=== PATIENT | female | born 1935 | race Caucasian/White ===

== ENCOUNTER 2018-01-26 13:29 | Emergency (ER) | payer MEDICARE, MEDICAID ==
[~2018-01-26] VITALS: Ht 162.6 cm; Wt 65.3 kg
[~2018-01-26 13:29] MED LIST: ALBU18HF2 INH; CELE-85 PO; DIGO125T PO; ENAL10TA PO; ESZO3TAB27 PO; FENO145T37 PO; FLUT1DIS28 INH; FURO20TA4 PO; HYDR10TA PO; LEVO750T46 PO; LUBI24CA5 PO; MONT10TA22 PO; OMEG1CAP40 PO; SOLI5TAB2 PO; TIOT18CA4 IH
[2018-01-26] MEDS ORDERED: IV NORMAL SALINE 500 ML BAG IV ONE (13:45)
--- NOTE | 2018-01-26 13:47 | NUR ---
Pt to CT, NAD noted.
--- NOTE | 2018-01-26 14:03 | NUR ---
Pt back from CT.
[2018-01-26 14:25] LABS: BASOPHILS # (AUTO) 0.1 K/uL (0.0-8.0); BASOPHILS % (AUTO) 0.6 % (0.0-2.0); EOSINOPHILS # (AUTO) 0.2 K/uL (0.0-0.7); EOSINOPHILS % (AUTO) 1.6 % (0.0-7.0); HEMATOCRIT 32.6 % (31.2-41.9); HEMOGLOBIN 11.4 g/dL (10.9-14.3); LYMPHOCYTES # (AUTO) 2.3 K/uL (20.0-40.0); LYMPHOCYTES % (AUTO) 24.3 % (20.5-51.5); MEAN CORPUSCULAR HEMOGLOBIN 30.7 uug (24.7-32.8); MEAN CORPUSCULAR HGB CONC 35 g/dL (32.3-35.6); MEAN CORPUSCULAR VOLUME 87.8 fL (75.5-95.3); MONOCYTES # (AUTO) 0.7 K/uL (2.0-10.0); MONOCYTES % (AUTO) 7.1 % (0.0-11.0); NEUTROPHILS # (AUTO) 6.2 K/uL (1.8-8.9); NEUTROPHILS % (AUTO) 66.4 % (38.5-71.5); PLATELET COUNT (AUTO) 204 K/uL (179-408); RED BLOOD CELL COUNT(AUTO) 3.72 MIL/uL (3.63-4.92); WHITE BLOOD COUNT (AUTO) 9.4 K/uL (3.8-11.8)
[2018-01-26] MEDS ORDERED: ALBU18HF2 IH (14:31)
[2018-01-26] MEDS ORDERED: POTA8TAB8 PO (14:31)
[2018-01-26] MEDS ORDERED: SPIR25TA4 PO (14:31)
[2018-01-26] MEDS ORDERED: LOSA100T15 PO (14:31)
[2018-01-26] MEDS ORDERED: HYDR-3974 PO (14:31)
[2018-01-26] MEDS ORDERED: OLME1TAB19 PO (14:31)
[2018-01-26] MEDS ORDERED: LUBI24CA5 PO (14:32)
[2018-01-26 14:34] LABS: ALANINE AMINOTRANSFERASE 27 U/L (14-59); ALKALINE PHOSPHATASE 35 U/L (50-136); ASPARTATE AMINOTRANSFERASE 11 U/L (15-37); BILIRUBIN,DIRECT 0.1 mg/dL (0.0-0.2); BILIRUBIN,TOTAL 0.3 mg/dL (0.2-1.0); CARBON DIOXIDE 23 mmol/L (21-32); CHLORIDE 107 mmol/L (98-107); GLUCOSE 157 mg/dL (74-106); LIPASE 168 U/L (73-393); POTASSIUM 4.2 mmol/L (3.5-5.1); TOTAL PROTEIN, SERUM 6.8 g/dL (6.4-8.2); UREA NITROGEN, BLOOD 23 mg/dL (7-18)
[2018-01-26 15:10] LABS: *BILIRUBIN,URIN NEGATIVE (NEGATIVE); *BLOOD, URINE NEGATIVE (NEGATIVE); *CLARITY,URINE CLEAR (CLEAR); *COLOR,URINE YELLOW (YELLOW); *KETONES,URINE NEGATIVE (NEGATIVE); *PROTEIN,URINE NEGATIVE (NEGATIVE); *UROBILINOGEN,URINE 0.2 E.U./dl (NORMAL); LEUKOCYTE ESTERASE ,URINE NEGATIVE (NEGATIVE); NITRITE, URINE NEGATIVE (NEGATIVE); PH,URINE 5.5 (5.0-8.0); UGLUCOSE NEGATIVE (NEGATIVE)
[2018-01-26 15:19] LABS: BACTERIA,URINE NONE SEEN /HPF (NONE SEEN); RBC,URINE 0-3 /HPF (0-3); SQUAMOUS EPITHELIAL CELL,UR FEW /HPF (NONE SEEN); WBC,URINE 0-3 /HPF (0-3)
--- NOTE | 2018-01-26 15:20 | NUR ---
IV removed. Catheter intact and site benign. Pressure and 4x4 gauze applied to site. No bleeding noted.
--- NOTE | 2018-01-26 15:23 | NUR ---
Patient discharged to home in stable conditon with family. Written and verbal after care instructions given. Patient and family verbalized understanding of instructions. Stressed follow up with pmd or return to ER for worsening s/s.
[2018-01-26 15:25] VITALS: BP 143/79
== END 2018-01-26 15:25 | disposition home or self-care (01) ==
LOC: ER 13:29
DX: R10.31 Right lower quadrant pain (principal); I10 Essential (primary) hypertension; J45.909 Unspecified asthma, uncomplicated; F17.210 Nicotine dependence, cigarettes, uncomplicated; Z88.0 Allergy status to penicillin; Z88.2 Allergy status to sulfonamides; Z88.8 Allergy status to other drugs, medicaments and biological substances; Z79.2 Long term (current) use of antibiotics; Z79.51 Long term (current) use of inhaled steroids; Z79.899 Other long term (current) drug therapy
CPT/HCPCS: 36415; 70030-TC; 83690; 85025; 93005; A4663; J7030

== ENCOUNTER 2018-02-26 11:51 | Emergency (ER) | payer MEDICARE, MEDICAID ==
[~2018-02-26] VITALS: Ht 152.4 cm; Wt 65.8 kg
[~2018-02-26 11:51] MED LIST changes: +ALBU18HF2 IH; +HYDR-3974 PO; +LOSA100T15 PO; +OLME1TAB19 PO; +POTA8TAB8 PO; +SPIR25TA4 PO
[2018-02-26] MEDS ORDERED: ALBUTEROL SULFATE 2.5 MG/3 ML NEBU NEB ONE (12:30)
[2018-02-26] MEDS ORDERED: IPRATROPIUM BROMIDE 0.5 MG/2.5 ML NEBU NEB ONE (12:30)
[2018-02-26] MEDS ORDERED: methylPREDNISolone SOD SUCC 125 MG/2 ML VIAL IV ONE (12:30)
[2018-02-26] MEDS ORDERED: methylPREDNISolone SOD SUCC 125 MG/2 ML VIAL ONE (12:38)
[2018-02-26] MEDS ORDERED: ALBUTEROL SULFATE 2.5 MG/3 ML NEBU ONE (12:43)
[2018-02-26] MEDS ORDERED: ALBUTEROL SULFATE 2.5 MG/ 0.5 ML NEBU ONE (12:44)
[2018-02-26] MEDS ORDERED: IPRATROPIUM BROMIDE 0.5 MG/2.5 ML NEBU ONE (12:44)
[2018-02-26 12:45] LABS: BASOPHILS # (AUTO) 0.1 K/uL (0.0-8.0); BASOPHILS % (AUTO) 0.7 % (0.0-2.0); EOSINOPHILS # (AUTO) 0.3 K/uL (0.0-0.7); EOSINOPHILS % (AUTO) 3.4 % (0.0-7.0); HEMATOCRIT 34.5 % (31.2-41.9); HEMOGLOBIN 11.6 g/dL (10.9-14.3); LYMPHOCYTES # (AUTO) 1.8 K/uL (20.0-40.0); LYMPHOCYTES % (AUTO) 23.1 % (20.5-51.5); MEAN CORPUSCULAR HGB CONC 34 g/dL (32.3-35.6); MEAN CORPUSCULAR VOLUME 86.5 fL (75.5-95.3); MONOCYTES # (AUTO) 0.8 K/uL (2.0-10.0); MONOCYTES % (AUTO) 9.8 % (0.0-11.0); PLATELET COUNT (AUTO) 182 K/uL (179-408); RED BLOOD CELL COUNT(AUTO) 3.99 MIL/uL (3.63-4.92)
--- NOTE | 2018-02-26 12:47 | NUR ---
RT AT BEDSIDE NEBULIZATION TX ADMINISTERED .
[2018-02-26 12:53] LABS: CARBON DIOXIDE 31 mmol/L (21-32); CHLORIDE 100 mmol/L (98-107); GLUCOSE 143 mg/dL (74-106); POTASSIUM 3.5 mmol/L (3.5-5.1); UREA NITROGEN, BLOOD 16 mg/dL (7-18)
[2018-02-26 13:06] LABS: ALANINE AMINOTRANSFERASE 29 U/L (14-59); ALKALINE PHOSPHATASE 39 U/L (50-136); ASPARTATE AMINOTRANSFERASE 18 U/L (15-37); BILIRUBIN,DIRECT 0.1 mg/dL (0.0-0.2); BILIRUBIN,TOTAL 0.4 mg/dL (0.2-1.0)
[2018-02-26] MEDS ORDERED: methylPREDNISolone ACETATE 40 MG VIAL IM ONE (13:30)
[2018-02-26] MEDS ORDERED: methylPREDNISolone ACETATE 40 MG VIAL ONE (13:50)
--- NOTE | 2018-02-26 14:06 | NUR ---
Patient discharged to home in stable conditon. Written and verbal after care instructions given. Patient verbalizes understanding of instructions.
[2018-02-26] MEDS ORDERED: ONDANSETRON ODT 4 MG TAB.RAPDIS ONE (14:11)
--- NOTE | 2018-02-26 14:12 | NUR ---
After patient received ACI, patient had a period of N/V. ERMD notified, orders received.
[2018-02-26] MEDS ORDERED: ONDANSETRON ODT 4 MG TAB.RAPDIS SL ONE (14:15)
== END 2018-02-26 14:14 | disposition home or self-care (01) ==
LOC: ER 11:51
DX: I11.0 Hypertensive heart disease with heart failure (principal); I50.32 Chronic diastolic (congestive) heart failure; F17.200 Nicotine dependence, unspecified, uncomplicated; I70.0 Atherosclerosis of aorta; D64.9 Anemia, unspecified; E78.5 Hyperlipidemia, unspecified; J44.1 Chronic obstructive pulmonary disease with (acute) exacerbation; J45.901 Unspecified asthma with (acute) exacerbation; Z88.0 Allergy status to penicillin; Z88.2 Allergy status to sulfonamides
CPT/HCPCS: 36415; 70030-TC; 71045; 83605; 85025; 87040; 93005; A4663; J1030; J2930; J3590; Q0162

== ENCOUNTER 2018-11-19 12:55 | Emergency (ER) | payer MEDICARE, MEDICAID ==
[~2018-11-19] VITALS: Ht 162.6 cm; Wt 63.5 kg
[~2018-11-19 12:55] MED LIST changes: -LEVO750T46 PO; -LOSA100T15 PO; +LOSA100T31 PO; -SPIR25TA4 PO; +SPIR25TA6 PO
--- NOTE | 2018-11-19 13:06 | NUR ---
PT A/OX4, PRESENTS TO THE ER W/ MULTIPLE COMPLAINTS. C/C FEVER - PT REPORTS FEVER THE LAST COUPLE OF DAYS BUT UNABLE TO REMEMBER WHAT THE TEMPERATURE WAS. SHE IS AFEBRILE AT THIS TIME. SECONDARY COMPLAINT: CHRONIC BACK PAIN. TERTIARY COMPLAINT: WEAKNESS. PT DENIES C/P, SOB, N/V/D, DIZZINESS, HEADACHE.
--- NOTE | 2018-11-19 13:10 | NUR ---
SHABBIR KNIGHT AT BEDSIDE FOR MSE.
[2018-11-19] MEDS ORDERED: METF-440 PO (13:17)
[2018-11-19] MEDS: IV NORMAL SALINE 500 ML BAG IV ONE (13:29)
[2018-11-19 13:34] LABS: BASOPHILS % (AUTO) 0.6 % (0.0-2.0); EOSINOPHILS # (AUTO) 0.4 K/uL (0.0-0.7); EOSINOPHILS % (AUTO) 4.5 % (0.0-7.0); HEMATOCRIT 32.3 % (31.2-41.9); HEMOGLOBIN 10.7 g/dL (10.9-14.3); LYMPHOCYTES # (AUTO) 1.9 K/uL (20.0-40.0); LYMPHOCYTES % (AUTO) 22.5 % (20.5-51.5); MEAN CORPUSCULAR HEMOGLOBIN 27.5 uug (24.7-32.8); MEAN CORPUSCULAR HGB CONC 33 g/dL (32.3-35.6); MEAN CORPUSCULAR VOLUME 83.4 fL (75.5-95.3); MONOCYTES # (AUTO) 0.8 K/uL (2.0-10.0); MONOCYTES % (AUTO) 9.1 % (0.0-11.0); NEUTROPHILS # (AUTO) 5.3 K/uL (1.8-8.9); NEUTROPHILS % (AUTO) 63.3 % (38.5-71.5); PLATELET COUNT (AUTO) 222 K/uL (179-408); RED BLOOD CELL COUNT(AUTO) 3.88 MIL/uL (3.63-4.92); WHITE BLOOD COUNT (AUTO) 8.3 K/uL (3.8-11.8)
[2018-11-19 13:41] LABS: CARBON DIOXIDE 28 mmol/L (21-32); CHLORIDE 102 mmol/L (98-107); CREATININE 1.1 mg/dL (0.6-1.3); GLUCOSE 134 mg/dL (74-106); UREA NITROGEN, BLOOD 22 mg/dL (7-18)
[2018-11-19 13:53] LABS: ALANINE AMINOTRANSFERASE 21 U/L (14-59); ALKALINE PHOSPHATASE 45 U/L (50-136); ASPARTATE AMINOTRANSFERASE 14 U/L (15-37); BILIRUBIN,DIRECT 0.1 mg/dL (0.0-0.2); BILIRUBIN,TOTAL 0.4 mg/dL (0.2-1.0); TOTAL PROTEIN, SERUM 7.3 g/dL (6.4-8.2)
--- NOTE | 2018-11-19 14:27 | NUR ---
Patient discharged to home in stable conditon. Written and verbal after care instructions given. Patient verbalizes understanding of instructions.
[2018-11-19 14:28] VITALS: BP 130/71
== END 2018-11-19 14:32 | disposition home or self-care (01) ==
LOC: ER 12:55
DX: R05 Cough (principal); R06.02 Shortness of breath; R07.9 Chest pain, unspecified; I11.0 Hypertensive heart disease with heart failure; J44.9 Chronic obstructive pulmonary disease, unspecified; F17.200 Nicotine dependence, unspecified, uncomplicated; Z88.0 Allergy status to penicillin; Z88.2 Allergy status to sulfonamides; Z88.8 Allergy status to other drugs, medicaments and biological substances; Z79.51 Long term (current) use of inhaled steroids; Z79.899 Other long term (current) drug therapy
CPT/HCPCS: 36415; 70030-TC; 71045; 83605; 85025; 87040; 93005; A4663; J7040

== ENCOUNTER 2019-02-14 20:18 | Inpatient (IN) | payer MEDICARE, MEDICAID ==
[~2019-02-14] VITALS: Ht 165.1 cm; Wt 59.0 kg
[~2019-02-14 20:18] MED LIST changes: -ALBU18HF2 IH; +METF-440 PO
--- NOTE | 2019-02-14 20:35 | NUR ---
Dr. Galeas at bedside for MSE.
--- NOTE | 2019-02-14 20:36 | NUR ---
Code Stroke Activated.
--- NOTE | 2019-02-14 20:36 | NUR ---
Dr. Galeas at bedside for MSE.
[2019-02-14] MEDS ORDERED: METOCLOPRAMIDE HCL 10 MG/2 ML VIAL ONE (20:42)
[2019-02-14] MEDS ORDERED: diphenhydrAMINE 50 MG/1 ML VIAL ONE (20:42)
--- NOTE | 2019-02-14 20:44 | NUR ---
Pt out of ER for CT.
[2019-02-14] MEDS ORDERED: diphenhydrAMINE 50 MG/1 ML VIAL IV ONE (20:45)
[2019-02-14] MEDS ORDERED: METOCLOPRAMIDE HCL 10 MG/2 ML VIAL IV ONE (20:45)
[2019-02-14 20:49] LABS: BASOPHILS % (AUTO) 0.4 % (0.0-2.0); EOSINOPHILS # (AUTO) 0.4 K/uL (0.0-0.7); HEMATOCRIT 34.7 % (31.2-41.9); HEMOGLOBIN 11.5 g/dL (10.9-14.3); LYMPHOCYTES # (AUTO) 2.6 K/uL (20.0-40.0); LYMPHOCYTES % (AUTO) 25.5 % (20.5-51.5); MEAN CORPUSCULAR HGB CONC 33 g/dL (32.3-35.6); MEAN CORPUSCULAR VOLUME 81.7 fL (75.5-95.3); MONOCYTES # (AUTO) 0.6 K/uL (2.0-10.0); MONOCYTES % (AUTO) 5.3 % (0.0-11.0); NEUTROPHILS # (AUTO) 6.7 K/uL (1.8-8.9); NEUTROPHILS % (AUTO) 64.8 % (38.5-71.5); PLATELET COUNT (AUTO) 275 K/uL (179-408); RED BLOOD CELL COUNT(AUTO) 4.25 MIL/uL (3.63-4.92); WHITE BLOOD COUNT (AUTO) 10.4 K/uL (3.8-11.8)
--- NOTE | 2019-02-14 20:55 | NUR ---
Pt back to ER from CT.
[2019-02-14 20:57] LABS: CARBON DIOXIDE 26 mmol/L (21-32); CHLORIDE 97 mmol/L (98-107); GLUCOSE 106 mg/dL (74-106); UREA NITROGEN, BLOOD 17 mg/dL (7-18)
[2019-02-14 21:03] LABS: ALANINE AMINOTRANSFERASE 19 U/L (14-59); ALKALINE PHOSPHATASE 53 U/L (50-136); ASPARTATE AMINOTRANSFERASE 12 U/L (15-37); BILIRUBIN,DIRECT 0.1 mg/dL (0.0-0.2); BILIRUBIN,TOTAL 0.3 mg/dL (0.2-1.0); CHOLESTEROL 199 mg/dL (<200); HDL CHOLESTEROL 40 mg/dL (40-60); TOTAL PROTEIN, SERUM 7.7 g/dL (6.4-8.2); TRIGLYCERIDES 336 MG/DL (30-150)
[2019-02-14] MEDS ORDERED: LABETALOL HCL 100 MG/20 ML VIAL ONE (21:15)
[2019-02-14] MEDS ORDERED: LABETALOL HCL 100 MG/20 ML VIAL IV ONE (21:30)
--- NOTE | 2019-02-14 21:30 | NUR ---
Code stroke cleared.
--- NOTE | 2019-02-14 22:01 | NUR ---
JIMI PAGED, AWAITING CALL BACK FROM DR. CASTANEDA
--- NOTE | 2019-02-14 22:08 | NUR ---
Dr. Galeas on panel call with Dr. Luis E Mendoza. Patient accepted for admission to [facility], diagnosis: accelerated hypertension.
--- NOTE | 2019-02-14 22:21 | NUR ---
Report given to Will leadership development instructor.
--- NOTE | 2019-02-14 22:40 | NUR ---
PATIENT AND FAMILY UNABLE TO RECALL MEDICATION AT HOME AT THIS TIME. ADMITTING NURSE NEEDS TO FOLLOW UP WITH MEDICATION
[2019-02-14] MEDS ORDERED: FENO145T37 PO (22:48)
[2019-02-14] MEDS ORDERED: ISOS30TA6 PO (22:48)
[2019-02-14] MEDS ORDERED: ALBU18HF2 IH (22:48)
[2019-02-14] MEDS ORDERED: LOTE5DRO4 OP (22:48)
[2019-02-14] MEDS ORDERED: EFIN4SOL TP (22:48)
[2019-02-14] MEDS ORDERED: FEBU40TA PO (22:48)
[2019-02-14] MEDS ORDERED: ESOM40CA PO (22:48)
--- NOTE | 2019-02-14 23:00 | NUR ---
ADMITTED PATIENT IN TELE UNIT UNDER THE CARE OF DR. CASTANEDA. PATIENT ALERT, ORIENTED, NO COMPLAIN OF PAIN AT THIS TIME. BP STABLE, BODY CHECK DONE, BELONGING LIST WAS DONE. CONT TO MONITOR.
[2019-02-14 23:08] VITALS: BP 133/64
[2019-02-14] MEDS ORDERED: MAGNESIUM HYDROXIDE 30 ML LIQUID UDC PO PRN (23:45)
[2019-02-14] MEDS ORDERED: HYDROCODONE/APAP 5-325MG TABLET PO PRN (23:45)
[2019-02-14] MEDS ORDERED: hydrALAZINE HCL 25 MG TABLET PO PRN (23:45)
[2019-02-14] MEDS ORDERED: TEMAZEPAM 15 MG CAPSULE PO PRN (23:45)
[2019-02-14] MEDS ORDERED: ONDANSETRON 4 MG/2 ML VIAL IV PRN (23:45)
[2019-02-14] MEDS ORDERED: ACETAMINOPHEN 325 MG TABLET PO PRN (23:45)
[2019-02-14] MEDS: BENAZEPRIL HCL 10 MG TABLET PO SCH (23:59)
[2019-02-15 04:00] VITALS: BP 123/67
--- NOTE | 2019-02-15 05:18 | NUR ---
PATIENT AWAKE, SLEPT MOST OF THE NIGHT, NO SOB NO CHEST PAIN, TELE MONITOR SINUS RHYTHM WITH OCCASIONAL PVC, NO COMPLAIN OF DIZZINESS, NOR HEADACHES. NOTED. CALL LIGHT WITHIN REACH.
[2019-02-15] MEDS: PANTOPRAZOLE SODIUM 40 MG TABLET.DR PO SCH (06:16)
[2019-02-15 06:49] LABS: BASOPHILS % (AUTO) 0.3 % (0.0-2.0); EOSINOPHILS # (AUTO) 0.4 K/uL (0.0-0.7); EOSINOPHILS % (AUTO) 5.1 % (0.0-7.0); HEMATOCRIT 29.8 % (31.2-41.9); LYMPHOCYTES # (AUTO) 2.8 K/uL (20.0-40.0); LYMPHOCYTES % (AUTO) 37.1 % (20.5-51.5); MEAN CORPUSCULAR HEMOGLOBIN 27.1 uug (24.7-32.8); MEAN CORPUSCULAR HGB CONC 34 g/dL (32.3-35.6); MONOCYTES # (AUTO) 0.6 K/uL (2.0-10.0); MONOCYTES % (AUTO) 7.5 % (0.0-11.0); NEUTROPHILS # (AUTO) 3.7 K/uL (1.8-8.9); PLATELET COUNT (AUTO) 232 K/uL (179-408); RED BLOOD CELL COUNT(AUTO) 3.68 MIL/uL (3.63-4.92); WHITE BLOOD COUNT (AUTO) 7.5 K/uL (3.8-11.8)
[2019-02-15 07:07] LABS: THYROID STIMULATING HORMONE 3.452 mIU/mL (0.358-3.740)
[2019-02-15 07:12] LABS: ALANINE AMINOTRANSFERASE 16 U/L (14-59); ALKALINE PHOSPHATASE 43 U/L (50-136); ASPARTATE AMINOTRANSFERASE 13 U/L (15-37); BILIRUBIN,TOTAL 0.5 mg/dL (0.2-1.0); CARBON DIOXIDE 25 mmol/L (21-32); CHLORIDE 99 mmol/L (98-107); GLUCOSE 86 mg/dL (74-106); MAGNESIUM 1.7 mg/dL (1.8-2.4); POTASSIUM 3.5 mmol/L (3.5-5.1); TOTAL PROTEIN, SERUM 6.5 g/dL (6.4-8.2); UREA NITROGEN, BLOOD 18 mg/dL (7-18)
[2019-02-15 07:15] LABS: IRON, SERUM 66 ug/dL (50-175)
--- NOTE | 2019-02-15 07:25 | NUR ---
RECEIVED REPORT FROM PAPER ROLL MACHINE OPERATOR NURSE.SIDE RAILS UP X2, BED ALARM ON. CALL LIGHT AT REACH.
[2019-02-15 08:58] VITALS: BP 111/37
[2019-02-15] MEDS: BENAZEPRIL HCL 10 MG TABLET PO SCH (09:01)
[2019-02-15] MEDS ORDERED: MAGNESIUM OXIDE 400 MG TABLET PO ONE (10:00)
[2019-02-15] MEDS ORDERED: DEXL60CA3 PO (11:42)
[2019-02-15] MEDS ORDERED: FLUT1DIS28 INH (11:44)
[2019-02-15] MEDS ORDERED: CALC-555 PO (11:46)
[2019-02-15 11:47] VITALS: BP 97/35
[2019-02-15] MEDS ORDERED: HYDR10TA PO (11:47)
[2019-02-15] MEDS ORDERED: TIOT18CA3 INH (11:48)
[2019-02-15] MEDS ORDERED: ESZO3TAB27 PO (11:48)
[2019-02-15] MEDS ORDERED: CHOL10002 PO (11:49)
[2019-02-15] MEDS ORDERED: MIRA25TA PO (11:51)
[2019-02-15] MEDS ORDERED: DIGO125T PO (11:51)
[2019-02-15] MEDS ORDERED: POTA8CAP10 PO (11:52)
[2019-02-15] MEDS ORDERED: MONT10TA22 PO (11:53)
[2019-02-15] MEDS ORDERED: LOSA100T31 PO (11:53)
[2019-02-15] MEDS ORDERED: METF-494 PO (11:54)
[2019-02-15] MEDS ORDERED: SPIR25TA6 PO (12:05)
[2019-02-15] MEDS ORDERED: FERR325T6 PO (13:11)
[2019-02-15] MEDS ORDERED: ALBUTEROL SULFATE 8 GM HFA.AER.AD IH PRN (13:30)
[2019-02-15] MEDS ORDERED: ALBUTEROL SULFATE 2.5 MG/3 ML NEBU NEB PRN (13:45)
[2019-02-15 16:03] VITALS: BP 112/58
[2019-02-15] MEDS ORDERED: FLUTICASONE/SALMETEROL 250/50 INHALER INH SCH (17:00)
[2019-02-15] MEDS ORDERED: Medication Not On Formulary EA (Ferrous Sulfate 325 MG) PO SCH (17:00)
[2019-02-15] MEDS: FERROUS SULFATE 325 MG TABEC PO SCH (17:35)
[2019-02-15] MEDS: METFORMIN XR 500 MG TAB.SR.24H PO SCH (17:36)
[2019-02-15] MEDS: HYDROCORTISONE 10 MG TABLET PO SCH (17:37)
[2019-02-15] MEDS ORDERED: Medication Not On Formulary EA (Metformin Hcl (Metformin Hcl Er) 1 TAB) PO SCH (18:00)
--- NOTE | 2019-02-15 18:41 | NUR ---
Patient slept throughout the morning. Patient took all medications as prescribed. Patient had echo done and results came back normal.
--- NOTE | 2019-02-15 19:40 | NUR ---
Received patient awake in bed with daughter at bedside. She is complaining of headache at the moment, will check her vital signs and check for prn pain medications. She is on room air, tolerated. She has an iv access on her right antecubital vein,20g to saline lock. Will monitor blood pressure changes. Bed in low position, locked, side rails up x 2, call light within reach. Noise and lights subdued.
[2019-02-15 19:58] VITALS: BP 100/36
--- NOTE | 2019-02-15 20:10 | NUR ---
Patient refused pain medication, since she states the pain went away. No other complaints at the moment. Will continue to monitor.
[2019-02-15] MEDS: DOCUSATE SODIUM 100 MG CAPSULE PO SCH ×2 (20:16→20:22)
[2019-02-15] MEDS ORDERED: CALCIUM CARB/VITAMIN D 500MG-200UNITS TABLET PO SCH (21:00)
[2019-02-15] MEDS ORDERED: FENOFIBRATE NANOCRYSTALLIZED 145 MG TABLET PO SCH (21:00)
[2019-02-15] MEDS ORDERED: ESZOPICLONE PO SCH (21:00)
[2019-02-15] MEDS ORDERED: DOCUSATE SODIUM 250 MG CAPSULE PO SCH (21:00)
[2019-02-16 00:05] VITALS: BP 110/38
[2019-02-16 04:00] VITALS: BP 113/39
--- NOTE | 2019-02-16 06:13 | NUR ---
Patient refused to take protonix at this time, insisting to take medication exactly 30 minutes before breakfast, will endorse to morning shift nurse.
--- NOTE | 2019-02-16 06:13 | NUR ---
Patient slept intermittently throughout the night. No recurrence of any pain. Still on room air, tolerated. Still with iv access on her right antecubital vein,20g to saline lock. Attended all needs. Ensured safety and comfort.
[2019-02-16 06:18] LABS: CARBON DIOXIDE 27 mmol/L (21-32); CHLORIDE 99 mmol/L (98-107); CREATININE 1.3 mg/dL (0.6-1.3); GLUCOSE 92 mg/dL (74-106); MAGNESIUM 1.8 mg/dL (1.8-2.4); POTASSIUM 3.9 mmol/L (3.5-5.1); UREA NITROGEN, BLOOD 27 mg/dL (7-18)
[2019-02-16 06:20] LABS: BASOPHILS % (AUTO) 0.5 % (0.0-2.0); EOSINOPHILS # (AUTO) 0.4 K/uL (0.0-0.7); EOSINOPHILS % (AUTO) 5.8 % (0.0-7.0); HEMATOCRIT 29.9 % (31.2-41.9); LYMPHOCYTES # (AUTO) 2.3 K/uL (20.0-40.0); LYMPHOCYTES % (AUTO) 35.4 % (20.5-51.5); MEAN CORPUSCULAR HEMOGLOBIN 27.3 uug (24.7-32.8); MEAN CORPUSCULAR HGB CONC 34 g/dL (32.3-35.6); MEAN CORPUSCULAR VOLUME 81.2 fL (75.5-95.3); MONOCYTES # (AUTO) 0.5 K/uL (2.0-10.0); NEUTROPHILS # (AUTO) 3.2 K/uL (1.8-8.9); NEUTROPHILS % (AUTO) 50.3 % (38.5-71.5); PLATELET COUNT (AUTO) 214 K/uL (179-408); RED BLOOD CELL COUNT(AUTO) 3.68 MIL/uL (3.63-4.92); WHITE BLOOD COUNT (AUTO) 6.5 K/uL (3.8-11.8)
[2019-02-16] MEDS ORDERED: PANTOPRAZOLE SODIUM 40 MG TABLET.DR PO SCH (07:00)
--- NOTE | 2019-02-16 07:25 | NUR ---
Received report from hourly shift manager nurse. Patient sleeping,bed at lowest position, side rail up x2, call light within reach and bed alarm on.
[2019-02-16] MEDS: PANTOPRAZOLE SODIUM 40 MG TABLET.DR PO SCH (08:01)
[2019-02-16] MEDS: METFORMIN XR 500 MG TAB.SR.24H PO SCH (08:02)
[2019-02-16] MEDS ORDERED: Medication Not On Formulary EA (Losartan Potassium 1 TAB) PO SCH (09:00)
[2019-02-16] MEDS ORDERED: MONTELUKAST SODIUM 10 MG TABLET PO SCH (09:00)
[2019-02-16] MEDS ORDERED: POTASSIUM CHLORIDE 8 MEQ TAB.PRT.SR PO SCH (09:00)
[2019-02-16] MEDS ORDERED: LOSARTAN POTASSIUM 50 MG TABLET PO SCH (09:00)
[2019-02-16] MEDS ORDERED: ISOSORBIDE MONONITRATE 30 MG TAB.SR.24H PO SCH (09:00)
[2019-02-16] MEDS ORDERED: FLUTICASONE/VILANTEROL 1 EACH BLST.W.DEV INH SCH (09:00)
[2019-02-16] MEDS ORDERED: CHOLECALCIFEROL 1,000 UNIT TABLET PO SCH (09:00)
[2019-02-16] MEDS ORDERED: DIGOXIN 125 MCG TABLET PO SCH (09:00)
[2019-02-16] MEDS: FERROUS SULFATE 325 MG TABEC PO SCH (09:04)
[2019-02-16] MEDS: HYDROCORTISONE 10 MG TABLET PO SCH (09:57)
[2019-02-16 11:00] VITALS: BP 108/42
--- NOTE | 2019-02-16 12:57 | NUR ---
PATIENT WAS GIVEN DISCHARGE INSTRUCTIONS, IV REMOVED, AND CHILDREN'S PROGRAM COORDINATOR COLLECTED. PATIENT BELONGINGS ACCOUNTED FOR, AND PATIENT IS AWAITING MANAGER FLIGHT OPERATIONS BY DAUGHTER.
[2019-02-17] MEDS ORDERED: SPIRONOLACTONE 25 MG TABLET PO SCH (09:00)
== END 2019-02-16 13:00 | disposition home or self-care (01) | DRG 103 ==
LOC: ER 20:20 → TELE3 22:25
PROVIDERS: ADMIT Internal Medicine; ATTEND Family Medicine
DX: G43.909 Migraine, unspecified, not intractable, without status migrainosus (principal); E83.42 Hypomagnesemia; J45.909 Unspecified asthma, uncomplicated; I11.9 Hypertensive heart disease without heart failure; R79.89 Other specified abnormal findings of blood chemistry; G93.89 Other specified disorders of brain; Z79.51 Long term (current) use of inhaled steroids; Z79.899 Other long term (current) drug therapy; Z88.2 Allergy status to sulfonamides; Z87.11 Personal history of peptic ulcer disease; Z87.891 Personal history of nicotine dependence; Z83.3 Family history of diabetes mellitus; Z82.49 Family history of ischemic heart disease and other diseases of the circulatory system; Z88.0 Allergy status to penicillin; Z79.84 Long term (current) use of oral hypoglycemic drugs
CPT/HCPCS: 36415; 70030-TC; 70450; 71045; 83550; 83735; 84100; 84443; 85025; 85730; 93005; 93307; 97116; 97530; A4663; G0378; J1200; J2765; J3490

== ENCOUNTER 2019-05-12 12:28 | Emergency (ER) | payer MEDICARE, MEDICAID ==
[~2019-05-12] VITALS: Ht 157.5 cm; Wt 61.2 kg
[~2019-05-12 12:28] MED LIST changes: +ALBU18HF2 IH; -ALBU18HF2 INH; +CALC-555 PO; -CELE-85 PO; +CHOL10002 PO; +DEXL60CA3 PO; +EFIN4SOL TP; -ENAL10TA PO; +FEBU40TA PO; +FERR325T6 PO; -FURO20TA4 PO; -HYDR-3974 PO; +ISOS30TA6 PO; -LUBI24CA5 PO; -METF-440 PO; +METF-494 PO; +MIRA25TA PO; -OLME1TAB19 PO; -OMEG1CAP40 PO; +POTA8CAP20 PO; -POTA8TAB8 PO; -SOLI5TAB2 PO; +TIOT18CA3 INH; -TIOT18CA4 IH
[2019-05-12] MEDS ORDERED: MORPHINE SULFATE 4 MG/1 ML DISP.SYRIN SQ ONE (13:30)
[2019-05-12] MEDS ORDERED: MORPHINE SULFATE 2 MG/1 ML DISP.SYRIN ONE (13:31)
--- NOTE | 2019-05-12 13:48 | NUR ---
"'I want to go home. " per patient's verbalization, MD notified. Patient says that she feels much better.
--- NOTE | 2019-05-12 14:03 | NUR ---
Patient discharged to home in stable conditon & slow steady gait. Written and verbal after care instructions given to patient. Patient verbalizes understanding & compliance of instructions.
== END 2019-05-12 14:06 | disposition home or self-care (01) ==
LOC: ER 12:28
DX: M79.632 Pain in left forearm (principal); I10 Essential (primary) hypertension; J45.909 Unspecified asthma, uncomplicated; F17.200 Nicotine dependence, unspecified, uncomplicated; Z88.0 Allergy status to penicillin; Z88.2 Allergy status to sulfonamides; Z88.8 Allergy status to other drugs, medicaments and biological substances; Z79.899 Other long term (current) drug therapy; Z79.51 Long term (current) use of inhaled steroids; W18.39XA Other fall on same level, initial encounter; Y93.89 Activity, other specified; Y92.89 Other specified places as the place of occurrence of the external cause; Y99.8 Other external cause status
CPT/HCPCS: 73090; 96372; 99283; J2270; A4663

== ENCOUNTER 2019-05-22 19:06 | Inpatient (IN) | payer MEDICARE, MEDICAID ==
[~2019-05-22] VITALS: Ht 162.6 cm; Wt 61.7 kg
[2019-05-22] MEDS ORDERED: IV NORMAL SALINE 1000 ML BAG IV ONE (20:15)
[2019-05-22 20:37] LABS: BASOPHILS % (AUTO) 0.2 % (0.0-2.0); EOSINOPHILS # (AUTO) 0.1 K/uL (0.0-0.7); EOSINOPHILS % (AUTO) 1.8 % (0.0-7.0); HEMATOCRIT 32.8 % (31.2-41.9); HEMOGLOBIN 11.2 g/dL (10.9-14.3); LYMPHOCYTES # (AUTO) 1.4 K/uL (20.0-40.0); LYMPHOCYTES % (AUTO) 20.5 % (20.5-51.5); MEAN CORPUSCULAR HGB CONC 34 g/dL (32.3-35.6); MEAN CORPUSCULAR VOLUME 85.4 fL (75.5-95.3); MONOCYTES # (AUTO) 0.8 K/uL (2.0-10.0); MONOCYTES % (AUTO) 11.7 % (0.0-11.0); NEUTROPHILS # (AUTO) 4.5 K/uL (1.8-8.9); NEUTROPHILS % (AUTO) 65.8 % (38.5-71.5); PLATELET COUNT (AUTO) 255 K/uL (179-408); RED BLOOD CELL COUNT(AUTO) 3.85 MIL/uL (3.63-4.92); WHITE BLOOD COUNT (AUTO) 6.8 K/uL (3.8-11.8)
[2019-05-22 20:50] LABS: ALANINE AMINOTRANSFERASE 22 U/L (14-59); ALKALINE PHOSPHATASE 50 U/L (50-136); ASPARTATE AMINOTRANSFERASE 14 U/L (15-37); BILIRUBIN,DIRECT < 0.1 mg/dL (0.0-0.2); BILIRUBIN,TOTAL 0.4 mg/dL (0.2-1.0); CARBON DIOXIDE 19 mmol/L (21-32); CHLORIDE 99 mmol/L (98-107); CREATININE 2.2 mg/dL (0.6-1.3); GLUCOSE 106 mg/dL (74-106); LIPASE 187 U/L (73-393); TOTAL PROTEIN, SERUM 7.6 g/dL (6.4-8.2); UREA NITROGEN, BLOOD 41 mg/dL (7-18)
[2019-05-22 20:52] LABS: POTASSIUM 6.2 mmol/L (3.5-5.1)
[2019-05-22] MEDS ORDERED: OLME40TA12 PO (20:56)
[2019-05-22] MEDS ORDERED: OLME1TAB22 PO (20:56)
[2019-05-22] MEDS ORDERED: SODIUM POLYSTYRENE SULFONATE 15 G/60 ML LIQUID UDC PO ONE (21:00)
[2019-05-22] MEDS ORDERED: SODIUM POLYSTYRENE SULF POWDER 15 GM UDC ONE (21:40)
[2019-05-22] MEDS ORDERED: TEMAZEPAM 15 MG CAPSULE PO PRN (21:45)
[2019-05-22] MEDS ORDERED: Z GUARD REMEDY PASTE 57 GM TUBE TOP PRN (21:45)
[2019-05-22] MEDS ORDERED: ONDANSETRON 4 MG/2 ML VIAL IV PRN (21:45)
[2019-05-22] MEDS ORDERED: ALBUTEROL SULFATE 2.5 MG/3 ML NEBU NEB PRN (21:45)
[2019-05-22] MEDS ORDERED: MORPHINE SULFATE 2 MG/1 ML DISP.SYRIN IV PRN (21:45)
[2019-05-22] MEDS ORDERED: ACETAMINOPHEN 325 MG TABLET PO PRN (21:45)
[2019-05-22 23:39] VITALS: BP 110/52
[2019-05-23 04:00] VITALS: BP 114/51
[2019-05-23 06:42] LABS: BASOPHILS % (AUTO) 0.1 % (0.0-2.0); EOSINOPHILS # (AUTO) 0.1 K/uL (0.0-0.7); EOSINOPHILS % (AUTO) 2.1 % (0.0-7.0); HEMATOCRIT 29.9 % (31.2-41.9); HEMOGLOBIN 10.2 g/dL (10.9-14.3); LYMPHOCYTES # (AUTO) 1.3 K/uL (20.0-40.0); LYMPHOCYTES % (AUTO) 25.2 % (20.5-51.5); MEAN CORPUSCULAR HEMOGLOBIN 29.3 uug (24.7-32.8); MEAN CORPUSCULAR HGB CONC 34 g/dL (32.3-35.6); MEAN CORPUSCULAR VOLUME 85.7 fL (75.5-95.3); MONOCYTES # (AUTO) 0.7 K/uL (2.0-10.0); MONOCYTES % (AUTO) 12.8 % (0.0-11.0); NEUTROPHILS # (AUTO) 3.2 K/uL (1.8-8.9); NEUTROPHILS % (AUTO) 59.8 % (38.5-71.5); PLATELET COUNT (AUTO) 197 K/uL (179-408); RED BLOOD CELL COUNT(AUTO) 3.49 MIL/uL (3.63-4.92); WHITE BLOOD COUNT (AUTO) 5.3 K/uL (3.8-11.8)
[2019-05-23 06:49] LABS: ALANINE AMINOTRANSFERASE 12 U/L (14-59); ALKALINE PHOSPHATASE 41 U/L (50-136); ASPARTATE AMINOTRANSFERASE 13 U/L (15-37); BILIRUBIN,TOTAL 0.5 mg/dL (0.2-1.0); CARBON DIOXIDE 20 mmol/L (21-32); CHLORIDE 100 mmol/L (98-107); CHOLESTEROL 160 mg/dL (<200); CREATININE 1.8 mg/dL (0.6-1.3); GLUCOSE 90 mg/dL (74-106); HDL CHOLESTEROL 25 mg/dL (40-60); MAGNESIUM 1.5 mg/dL (1.8-2.4); POTASSIUM 4.5 mmol/L (3.5-5.1); TOTAL PROTEIN, SERUM 6.3 g/dL (6.4-8.2); TRIGLYCERIDES 196 MG/DL (30-150); UREA NITROGEN, BLOOD 41 mg/dL (7-18)
[2019-05-23] MEDS: PANTOPRAZOLE SODIUM 40 MG TABLET.DR PO SCH ×2 (07:46→08:02)
[2019-05-23] MEDS: MAGNESIUM SULFATE/D5W 100 ML IV SCH ×2 (08:02→09:09)
[2019-05-23] MEDS: CHOLECALCIFEROL 1,000 UNIT TABLET PO SCH ×2 (08:03→09:00)
[2019-05-23] MEDS: MONTELUKAST SODIUM 10 MG TABLET PO SCH ×2 (08:04→09:00)
[2019-05-23] MEDS: HYDROCORTISONE 10 MG TABLET PO SCH ×3 (08:05→17:00)
[2019-05-23] MEDS: FLUTICASONE/VILANTEROL 1 EACH BLST.W.DEV INH SCH ×2 (08:07→09:00)
[2019-05-23] MEDS: LOSARTAN POTASSIUM 50 MG TABLET PO SCH (08:07)
[2019-05-23] MEDS: DIGOXIN 125 MCG TABLET PO SCH (08:11)
[2019-05-23] MEDS: IV NS 1000 ML 1,000 ML IV PRN ×2 (08:38→20:21)
[2019-05-23] MEDS ORDERED: Medication Not On Formulary EA (Olmesartan Medoxomil (Benicar) 40 MG) PO SCH (09:00)
[2019-05-23] MEDS: OXYBUTYNIN XL 5 MG TABSR PO SCH (09:00)
[2019-05-23] MEDS ORDERED: FLUTICASONE/SALMETEROL 250/50 INHALER INH SCH (09:00)
[2019-05-23] MEDS: HYDROCODONE/APAP 5-325MG TABLET PO PRN ×2 (09:41→21:12)
[2019-05-23] MEDS: LOPERAMIDE HCL 2 MG CAPSULE PO PRN (09:48)
[2019-05-23 11:31] VITALS: BP 107/46
[2019-05-23 15:56] VITALS: BP 98/36
[2019-05-23 20:44] VITALS: BP 122/90
[2019-05-23] MEDS: FENOFIBRATE NANOCRYSTALLIZED 145 MG TABLET PO SCH (21:00)
[2019-05-23] MEDS: CALCIUM CARB/VITAMIN D 500MG-200UNITS TABLET PO SCH (21:13)
[2019-05-23 22:02] LABS: *BILIRUBIN,URIN NEGATIVE (NEGATIVE); *BLOOD, URINE NEGATIVE (NEGATIVE); *CLARITY,URINE CLEAR (CLEAR); *COLOR,URINE YELLOW (YELLOW); *KETONES,URINE NEGATIVE (NEGATIVE); *UROBILINOGEN,URINE 0.2 E.U./dl (NORMAL); LEUKOCYTE ESTERASE ,URINE NEGATIVE (NEGATIVE); NITRITE, URINE NEGATIVE (NEGATIVE); UGLUCOSE NEGATIVE (NEGATIVE)
[2019-05-23] MEDS ORDERED: ICOS1CAP PO (22:04)
[2019-05-23] MEDS ORDERED: k-dur PO (22:06)
[2019-05-23] MEDS ORDERED: ISOS30TA6 PO (22:07)
[2019-05-23] MEDS ORDERED: TRAM50TA2 PO (22:08)
[2019-05-23] MEDS ORDERED: ALBU18HF2 IH (22:09)
[2019-05-23] MEDS ORDERED: LUBI24CA5 PO (22:10)
[2019-05-23] MEDS ORDERED: GABA-534 PO (22:11)
[2019-05-23] MEDS ORDERED: FERR325T23 PO (22:12)
[2019-05-24] VITALS: BP 122/87
[2019-05-24 04:00] VITALS: BP 130/60
[2019-05-24 05:50] LABS: BASOPHILS % (AUTO) 0.2 % (0.0-2.0); EOSINOPHILS # (AUTO) 0.1 K/uL (0.0-0.7); HEMATOCRIT 28.7 % (31.2-41.9); HEMOGLOBIN 10.1 g/dL (10.9-14.3); LYMPHOCYTES # (AUTO) 1.1 K/uL (20.0-40.0); LYMPHOCYTES % (AUTO) 28.3 % (20.5-51.5); MEAN CORPUSCULAR HEMOGLOBIN 29.7 uug (24.7-32.8); MEAN CORPUSCULAR HGB CONC 35 g/dL (32.3-35.6); MEAN CORPUSCULAR VOLUME 84.3 fL (75.5-95.3); MONOCYTES # (AUTO) 0.6 K/uL (2.0-10.0); MONOCYTES % (AUTO) 14.7 % (0.0-11.0); NEUTROPHILS # (AUTO) 2.2 K/uL (1.8-8.9); NEUTROPHILS % (AUTO) 54.8 % (38.5-71.5); PLATELET COUNT (AUTO) 187 K/uL (179-408); RED BLOOD CELL COUNT(AUTO) 3.41 MIL/uL (3.63-4.92); WHITE BLOOD COUNT (AUTO) 3.9 K/uL (3.8-11.8)
[2019-05-24 05:56] LABS: CARBON DIOXIDE 19 mmol/L (21-32); CHLORIDE 106 mmol/L (98-107); CREATININE 1.1 mg/dL (0.6-1.3); GLUCOSE 83 mg/dL (74-106); MAGNESIUM 1.7 mg/dL (1.8-2.4); POTASSIUM 4.7 mmol/L (3.5-5.1); UREA NITROGEN, BLOOD 25 mg/dL (7-18)
[2019-05-24] MEDS: IV NS 1000 ML 1,000 ML IV PRN ×2 (06:17→16:42)
[2019-05-24] MEDS: PANTOPRAZOLE SODIUM 40 MG TABLET.DR PO SCH (06:17)
[2019-05-24] MEDS ORDERED: MONTELUKAST SODIUM 10 MG TABLET PO SCH ×2 (07:15→18:00)
[2019-05-24] MEDS: DIGOXIN 125 MCG TABLET PO SCH (08:47)
[2019-05-24] MEDS: CHOLECALCIFEROL 1,000 UNIT TABLET PO SCH (08:48)
[2019-05-24] MEDS: HYDROCODONE/APAP 5-325MG TABLET PO PRN ×2 (08:48→18:17)
[2019-05-24] MEDS: LOPERAMIDE HCL 2 MG CAPSULE PO PRN (08:48)
[2019-05-24] MEDS: LOSARTAN POTASSIUM 50 MG TABLET PO SCH (08:49)
[2019-05-24] MEDS: OXYBUTYNIN XL 5 MG TABSR PO SCH (08:49)
[2019-05-24] MEDS: HYDROCORTISONE 10 MG TABLET PO SCH ×2 (08:50→17:32)
[2019-05-24] MEDS: FLUTICASONE/VILANTEROL 1 EACH BLST.W.DEV INH SCH (08:54)
[2019-05-24 09:00] VITALS: BP 144/55
[2019-05-24] MEDS ORDERED: MAGNESIUM OXIDE 400 MG TABLET PO ONE (09:45)
[2019-05-24 15:59] LABS: IRON, SERUM 39 ug/dL (50-175)
[2019-05-24 16:12] LABS: FERRITIN 59 ng/mL (8-252)
[2019-05-24 18:08] VITALS: BP 116/51
[2019-05-24 19:46] VITALS: BP 129/60
[2019-05-24] MEDS: CALCIUM CARB/VITAMIN D 500MG-200UNITS TABLET PO SCH (20:14)
[2019-05-24] MEDS: FENOFIBRATE NANOCRYSTALLIZED 145 MG TABLET PO SCH (20:14)
[2019-05-25] MEDS: IV NS 1000 ML 1,000 ML IV PRN (02:28)
[2019-05-25] MEDS: HYDROCODONE/APAP 5-325MG TABLET PO PRN ×2 (03:17→09:23)
[2019-05-25 05:54] VITALS: BP 122/64
[2019-05-25] MEDS: PANTOPRAZOLE SODIUM 40 MG TABLET.DR PO SCH (06:25)
[2019-05-25 06:39] LABS: BASOPHILS % (AUTO) 0.2 % (0.0-2.0); EOSINOPHILS # (AUTO) 0.1 K/uL (0.0-0.7); EOSINOPHILS % (AUTO) 2.3 % (0.0-7.0); HEMATOCRIT 27.8 % (31.2-41.9); HEMOGLOBIN 9.6 g/dL (10.9-14.3); LYMPHOCYTES # (AUTO) 1.3 K/uL (20.0-40.0); MEAN CORPUSCULAR HEMOGLOBIN 29.5 uug (24.7-32.8); MEAN CORPUSCULAR HGB CONC 34 g/dL (32.3-35.6); MEAN CORPUSCULAR VOLUME 85.6 fL (75.5-95.3); MONOCYTES # (AUTO) 0.5 K/uL (2.0-10.0); MONOCYTES % (AUTO) 15.3 % (0.0-11.0); NEUTROPHILS # (AUTO) 1.5 K/uL (1.8-8.9); NEUTROPHILS % (AUTO) 44.2 % (38.5-71.5); PLATELET COUNT (AUTO) 191 K/uL (179-408); RED BLOOD CELL COUNT(AUTO) 3.24 MIL/uL (3.63-4.92); WHITE BLOOD COUNT (AUTO) 3.5 K/uL (3.8-11.8)
[2019-05-25 06:46] LABS: CARBON DIOXIDE 20 mmol/L (21-32); CHLORIDE 110 mmol/L (98-107); CREATININE 0.9 mg/dL (0.6-1.3); GLUCOSE 87 mg/dL (74-106); MAGNESIUM 1.6 mg/dL (1.8-2.4); PHOSPHOROUS 3.9 mg/dL (2.5-4.9); POTASSIUM 4.3 mmol/L (3.5-5.1); UREA NITROGEN, BLOOD 15 mg/dL (7-18)
[2019-05-25 07:36] LABS: EOSINOPHILS % (MANUAL) 2 % (0-8); LYMPHOCYTES % (MANUAL) 38 % (20-40); MONOCYTES % (MANUAL) 12 % (2-10); NEUTROPHILS % (MANUAL) 48 % (42-75)
[2019-05-25] MEDS: FLUTICASONE/VILANTEROL 1 EACH BLST.W.DEV INH SCH (09:06)
[2019-05-25] MEDS: HYDROCORTISONE 10 MG TABLET PO SCH (09:06)
[2019-05-25] MEDS: DIGOXIN 125 MCG TABLET PO SCH (09:09)
[2019-05-25] MEDS: CHOLECALCIFEROL 1,000 UNIT TABLET PO SCH (09:10)
[2019-05-25] MEDS: LOSARTAN POTASSIUM 50 MG TABLET PO SCH (09:13)
[2019-05-25] MEDS: OXYBUTYNIN XL 5 MG TABSR PO SCH (09:13)
[2019-05-25] MEDS ORDERED: MAGNESIUM OXIDE 400 MG TABLET PO ONE (10:15)
[2019-05-25 10:53] LABS: *OCCULT BLOOD STOOL NEGATIVE (NEGATIVE)
[2019-05-25 11:32] VITALS: BP 146/65
[2019-05-25] MEDS ORDERED: LOPE2CAP40 PO (12:20)
[2019-05-25] MEDS ORDERED: LOSA50TA3 PO (12:20)
== END 2019-05-25 15:15 | disposition home or self-care (01) | DRG 640 ==
LOC: ER 19:11 → TELE3 23:14 → MEDSURG3 05-24 11:30
PROVIDERS: ADMIT Nurse Practitioner Acute Care; ATTEND Nurse Practitioner Acute Care
PROC: 05HB33Z Insertion of Infusion Device into Right Basilic Vein, Percutaneous Approach (ICD-10-PCS; principal; 2019-05-24)
DX: E87.5 Hyperkalemia (principal); N17.0 Acute kidney failure with tubular necrosis; E44.1 Mild protein-calorie malnutrition; E87.1 Hypo-osmolality and hyponatremia; E86.0 Dehydration; E83.42 Hypomagnesemia; R19.7 Diarrhea, unspecified; G43.909 Migraine, unspecified, not intractable, without status migrainosus; Z90.49 Acquired absence of other specified parts of digestive tract; Z83.3 Family history of diabetes mellitus; Z82.49 Family history of ischemic heart disease and other diseases of the circulatory system; Z79.51 Long term (current) use of inhaled steroids; J45.909 Unspecified asthma, uncomplicated; K44.9 Diaphragmatic hernia without obstruction or gangrene; I11.9 Hypertensive heart disease without heart failure; D64.9 Anemia, unspecified; I95.9 Hypotension, unspecified
CPT/HCPCS: 36415; 71045; 83550; 83690; 83735; 84100; 84443; 85025; 86625; 87046; 87086; 87177; 93005; A4663; G0378; J3475; J7030

== ENCOUNTER 2019-11-23 12:02 | Emergency (ER) | payer MEDICARE, OTHER ==
[~2019-11-23] VITALS: Ht 162.6 cm; Wt 59.0 kg
--- NOTE | 2019-11-23 12:28 | NUR ---
Pt walked in w/ steady gate w/ friend c/o LLQ pain past month but has gotten worse and more severe past 3 days. Pt A/O x4 , no neuro symptoms noted. Lungs are clear bilaterally, noSOB. No chest pain, all pulses palpable, cap refil <3 seconds. Abdominal pain x3 days, no N/V. Bed at lowest level, side rails upx2, call light within reach of pt.Fall precautions implemented.
[2019-11-23] MEDS ORDERED: SWABABLE VALVE TRANSFER SET EA MC ONE (12:41)
[2019-11-23] MEDS ORDERED: IV NORMAL SALINE 250 ML IV ONE (12:41)
[2019-11-23] MEDS ORDERED: IOHEXOL 300MG/ML 100 ML INFUS..BTL ONE (12:41)
[2019-11-23 13:06] LABS: BASOPHILS % (AUTO) 0.4 % (0.0-2.0); EOSINOPHILS # (AUTO) 0.4 K/uL (0.0-0.7); EOSINOPHILS % (AUTO) 4.2 % (0.0-7.0); HEMATOCRIT 40.7 % (31.2-41.9); HEMOGLOBIN 13.8 g/dL (10.9-14.3); LYMPHOCYTES # (AUTO) 2.4 K/uL (20.0-40.0); LYMPHOCYTES % (AUTO) 25.6 % (20.5-51.5); MEAN CORPUSCULAR HEMOGLOBIN 31.2 uug (24.7-32.8); MEAN CORPUSCULAR HGB CONC 34 g/dL (32.3-35.6); MONOCYTES # (AUTO) 0.6 K/uL (2.0-10.0); MONOCYTES % (AUTO) 6.4 % (0.0-11.0); NEUTROPHILS # (AUTO) 5.9 K/uL (1.8-8.9); NEUTROPHILS % (AUTO) 63.4 % (38.5-71.5); PLATELET COUNT (AUTO) 199 K/uL (179-408); RED BLOOD CELL COUNT(AUTO) 4.42 MIL/uL (3.63-4.92); WHITE BLOOD COUNT (AUTO) 9.3 K/uL (3.8-11.8)
--- NOTE | 2019-11-23 13:13 | NUR ---
Pt signed consent for CT scan of abdomen.
[2019-11-23 13:20] LABS: BILIRUBIN,DIRECT 0.1 mg/dL (0.0-0.2); BILIRUBIN,TOTAL 0.3 mg/dL (0.2-1.0); CREATININE 1.1 mg/dL (0.6-1.3); POTASSIUM 3.8 mmol/L (3.5-5.1); TOTAL PROTEIN, SERUM 7.5 g/dL (6.4-8.2)
[2019-11-23 13:21] LABS: *BILIRUBIN,URIN NEGATIVE (NEGATIVE); *BLOOD, URINE NEGATIVE (NEGATIVE); *CLARITY,URINE CLEAR (CLEAR); *COLOR,URINE YELLOW (YELLOW); *KETONES,URINE NEGATIVE (NEGATIVE); *UROBILINOGEN,URINE 0.2 E.U./dl (NORMAL); LEUKOCYTE ESTERASE ,URINE NEGATIVE (NEGATIVE); NITRITE, URINE NEGATIVE (NEGATIVE); PH,URINE 5.5 (5.0-8.0); UGLUCOSE NEGATIVE (NEGATIVE)
[2019-11-23] MEDS ORDERED: MORPHINE SULFATE 2 MG/1 ML DISP.SYRIN ONE (14:36)
[2019-11-23] MEDS ORDERED: MORPHINE SULFATE 2 MG/1 ML DISP.SYRIN IV ONE (14:45)
--- NOTE | 2019-11-23 14:48 | NUR ---
pt given pain med iv , tolerated well. Resting in bed comfortably. friend at bedside
--- NOTE | 2019-11-23 15:00 | NUR ---
Patient discharged to home in stable conditon walking w steady gair .Iv removed on R AC. Written and verbal after care instructions given. Patient verbalizes understanding of instructions.Patients friend will drive her home.
[2019-11-23 15:19] VITALS: BP 122/80
== END 2019-11-23 15:00 | disposition home or self-care (01) ==
LOC: ER 12:02
DX: K44.9 Diaphragmatic hernia without obstruction or gangrene (principal); K57.90 Diverticulosis of intestine, part unspecified, without perforation or abscess without bleeding; J45.909 Unspecified asthma, uncomplicated; I10 Essential (primary) hypertension; F17.200 Nicotine dependence, unspecified, uncomplicated; Z60.2 Problems related to living alone; Z88.8 Allergy status to other drugs, medicaments and biological substances; Z88.0 Allergy status to penicillin; Z79.899 Other long term (current) drug therapy
CPT/HCPCS: 36415; 74177; 80048; 80076; 81001; 83690; 85025; 96374; 99285; J2270; Q9967; A4663; J7050